=== PATIENT | female | born 1975 | race African-American/Black ===

== ENCOUNTER 2024-01-01 11:09 | Outpatient (CLI) | payer OTHER, SELFPAY ==
--- NOTE | 2024-01-01 11:15 | CRLHL7_ITS ---
For Patients: As a result of the Century Cures Act, medical imaging exams and procedure reports are released immediately into your electronic medical record. You may view this report before your referring provider. If you have questions, please contact your health care provider. INDICATION: Leiomyomas COMPARISON: 03/28/2019 TECHNIQUE: 2D salazar scale and color Doppler images were acquired of the pelvis using a transabdominal and transvaginal approach. FINDINGS: The uterus is enlarged with a lobular contour. Multiple uterine fibroids are present. Intramural fibroid within the right lower uterus measures 6.5 x 5.0 x 6.0 cm. Right superior subserosal fibroid measures 3.8 x 3.4 x 4.2 cm. Intramural left superior fibroid measures 4.3 x 3.7 x 4.0 cm. Previously, fibroids measured 4.9 x 3.6 x 5.4 cm and 3.2 x 3.5 x 3.0 cm. Uterus measures 11.6 cm in length by 8.4 cm in AP diameter by 9.9 cm in transverse dimension. The myometrium has a heterogeneous echotexture. The endometrial lining measures 3.4 mm in composite thickness. The right ovary measures 4.2 x 3.0 x 4.3 cm in size and the left ovary measures 3.3 x 1.9 x 1.7 cm. The ovaries demonstrate normal arterial and venous blood flow on color Doppler analysis. Trace pelvic free fluid is present. IMPRESSION: Leiomyomatous uterus with multiple fibroids measuring up to 6.5 cm. Dictated by Jeb Medina MD @ 01/02/2024 10:45:39 AM (Electronically Signed)
== END 2024-01-01 11:10 | disposition home or self-care (01) ==
LOC: US 11:10
PROVIDERS: PCP Family Medicine; Visit Provider Obstetrics & Gynecology
DX: D25.9 Leiomyoma of uterus, unspecified (principal)
CPT/HCPCS: 76830; 76856

== ENCOUNTER 2024-01-01 13:11 | Outpatient (CLI) | payer OTHER, SELFPAY | END 2024-01-01 13:12 | disposition home or self-care (01) | PROVIDERS: PCP Family Medicine; Visit Provider Obstetrics & Gynecology | DX: N91.1 Secondary amenorrhea (principal); E03.9 Hypothyroidism, unspecified | CPT/HCPCS: 83001; 83520 ==